=== PATIENT | female | born 1985 | race Caucasian/White ===

== ENCOUNTER 2018-03-07 11:11 | Emergency (ER) | payer OTHER ==
[2018-03-07 11:20] VITALS: BP 109/61
--- NOTE | 2018-03-07 12:11 | ED Physician Documentation ---
PD HPI HEENT - Stated complaint Stated Complaint: THROAT PX - Chief complaint Chief Complaint: General - History obtained from History obtained from: Patient - History of Present Illness Timing - onset: How many days ago (3-4) Timing - duration: Days Timing - details: Gradual onset, Still present Location: Throat. No: Right ear, Left ear, Sinuses Worsens: Swalllowing Associated symptoms: Congestion, Swollen nodes. No: Fever, Facial swelling Similar symptoms before: No: Has not had sx before Recently seen: Not recently seen Review of Systems Constitutional: reports: Myalgias. denies: Fever, Chills Nose: reports: Congestion. 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 - Past Surgical History Past Surgical History: Yes General: Appendectomy HEENT: Tonsil/Adenoidectomy - Present Medications Home Medications: Ambulatory Orders Medication Instructions Recorded Confirmed Ibuprofen [Motrin] 800 mg PO Q8H PRN #30 tablet 08/29/14 Citalopram [CeleXA] 20 mg PO DAILY 02/24/17 02/24/17 Dexamethasone [Decadron] 4 mg PO DAILY #5 tablet 03/07/18 Tramadol HCl 50 mg PO Q6H PRN #20 tablet 03/07/18 - Allergies Allergies/Adverse Reactions: Allergies Allergy/AdvReac Type Severity Reaction Status Date / Time pseudoephedrine HCl * Allergy Severe shock Verified 03/07/18 11:20 [From [facility]] pheudofed Allergy Unknown Uncoded 03/07/18 11:20 - Social History Does the pt smoke?: No Smoking Status: Never smoker Does the pt drink ETOH?: No Does the pt have substance abuse?: No - Immunizations Immunizations are current?: Yes - POLST Patient has POLST: No PD ED PE NORMAL - Vitals Vital signs reviewed: Yes - General General: Alert and oriented X 3, No acute distress, Well developed/nourished - HEENT HEENT: Ears normal, Pharynx benign - Neck Neck: Supple, no meningeal sign, Other (mild right anterior adenopathy) - Cardiac Cardiac: RRR, No murmur - Respiratory Respiratory: Clear bilaterally - Derm Derm: Normal color, Warm and dry, No rash Results - Vitals Vitals: Vital Signs - 24 hr 03/07/18 11:18 Temperature 37.2 C Heart Rate 61 Respiratory 16 Rate Blood Pressure 109/61 O2 Saturation 98 Oxygen O2 Source Room air - Labs Labs: Laboratory Tests 03/07/18 11:24 Group A Strep Rapid Negative Departure - Departure Disposition: Home, Self Care Clinical Impression: Acute viral pharyngitis Condition: Stable Record reviewed to determine appropriate education?: Yes Instructions: ED Pharyngitis Viral Follow-Up: CLEM RUBALCAVA [Primary Care Provider] - Prescriptions: Dexamethasone [Decadron] 4 mg PO DAILY #5 tablet Tramadol HCl 50 mg PO Q6H PRN #20 tablet PRN Reason: Pain Comments: It does not look bacterial on exam and your rapid strep test is negative. The culture will result in a couple of days and sometimes will reveal a different type of bacterial infection. Will call you if it is positive. Meanwhile we will presume it is a viral infection and treated with lots of fluids and Tylenol or ibuprofen. He may get some additional improvement with Decadron steroid anti-inflammatory and he can use tramadol pain medicine if needed for worse pain. Discharge Date/Time: 03/07/18 12:37
[2018-03-07] MEDS ORDERED: DEXAMETHASONE 10 MG/ML VIAL PO STA (12:19)
[2018-03-07] MEDS ORDERED: CHERRY SYRUP 10 ML UDC PO ONE (12:25)
== END 2018-03-07 12:37 | disposition home or self-care (01) ==
LOC: ED 11:11
DX: J02.9 Acute pharyngitis, unspecified (principal)
CPT/HCPCS: 87070; 87430; 99283; A9270

== ENCOUNTER 2019-02-05 12:17 | Emergency (ER) | payer OTHER ==
[2019-02-05 12:27] VITALS: BP 127/79
[2019-02-05] MEDS ORDERED: HYDROcod/ACETAM 5/325 MG TABLET PO STA (12:43)
[2019-02-05] MEDS ORDERED: GABAPENTIN 100 MG CAPSULE PO STA (12:43)
[2019-02-05] MEDS ORDERED: predniSONE 20 MG TABLET PO STA (12:43)
[2019-02-05] MEDS ORDERED: LIDOCAINE PATCH 5% TOP STA (12:43)
--- NOTE | 2019-02-05 12:44 | ED Physician Documentation ---
PD HPI SKIN - Stated complaint Stated Complaint: L SIDE RASH - Chief complaint Chief Complaint: Wound - History obtained from History obtained from: Patient - History of Present Illness Timing - onset: Other (5 days of a painful rash on the left flank, saw her doctor yesterday and was prescribed developed acyclovir for shingles, but she needs something more for pain.) Review of Systems Constitutional: reports: Reviewed and negative Throat: reports: Reviewed and negative Cardiac: reports: Reviewed and negative Respiratory: reports: Reviewed and negative PD PAST MEDICAL HISTORY - Past Medical History Cardiovascular: None Respiratory: None Neuro: None Endocrine/Autoimmune: None 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 - Past Surgical History Past Surgical History: Yes General: Appendectomy HEENT: Tonsil/Adenoidectomy - Present Medications Home Medications: Ambulatory Orders Medication Instructions Recorded Confirmed Ibuprofen [Motrin] 800 mg PO Q8H PRN #30 tablet 08/29/14 Citalopram [CeleXA] 20 mg PO DAILY 02/24/17 02/24/17 Tramadol HCl 50 mg PO Q6H PRN #20 tablet 03/07/18 dexAMETHasone [Decadron] 4 mg PO DAILY #5 tablet 03/07/18 Gabapentin [Neurontin] 300 mg PO TID #60 capsule 02/05/19 Hydrocodone/Acetaminophen 1 - 2 each PO Q6H PRN #14 tablet 02/05/19 [Hydrocodon-Acetaminophen 5-325] Lidocaine Patch 5% [Lidoderm Patch] 1 patch TOP DAILY PRN #10 patch 02/05/19 predniSONE [Deltasone] 20 mg PO [id number] #21 tab 02/05/19 - Allergies Allergies/Adverse Reactions: Allergies Allergy/AdvReac Type Severity Reaction Status Date / Time pseudoephedrine HCl * Allergy Severe shock Verified 02/05/19 12:27 [From Sudafed] pheudofed Allergy Unknown Uncoded 02/05/19 12:27 - Social History Does the pt smoke?: No Smoking Status: Never smoker Does the pt drink ETOH?: No Does the pt have substance abuse?: No - Immunizations Immunizations are current?: Yes - POLST Patient has POLST: No PD ED PE NORMAL - Vitals Vital signs reviewed: Yes - General General: Alert and oriented X 3, No acute distress - Derm Derm: Normal color, Warm and dry - Neuro Neuro: Alert and oriented X 3, Normal speech PD ED PE EXPANDED - Visual Whole body visual: 1 - rash (shingles) Results - Vitals Vitals: Vital Signs - 24 hr 02/05/19 12:23 Temperature 36.8 C Heart Rate 78 Respiratory 19 Rate Blood Pressure 127/79 O2 Saturation 95 Oxygen O2 Source Room air Departure - Departure Disposition: 01 Home, Self Care Clinical Impression: Shingles Qualifiers: Herpes zoster complications: without complications Qualified Code(s): B02.9 - Zoster without complications Condition: Good Record reviewed to determine appropriate education?: Yes Instructions: ED Shingles Prescriptions: Gabapentin [Neurontin] 300 mg PO TID #60 capsule Hydrocodone/Acetaminophen [Hydrocodon-Acetaminophen 5-325] 1 - 2 each PO Q6H PRN #14 tablet PRN Reason: pain Lidocaine Patch 5% [Lidoderm Patch] 1 patch TOP DAILY PRN #10 patch PRN Reason: pain predniSONE [Deltasone] 20 mg PO [id number] #21 tab Comments: Continue the antiviral medication your doctor gave you. Return for new or worsening symptoms.
== END 2019-02-05 12:56 | disposition home or self-care (01) ==
LOC: ED 12:17
DX: B02.9 Zoster without complications (principal)
CPT/HCPCS: 99283; A9270; J7512

== ENCOUNTER 2020-12-30 13:25 | Emergency (ER) | payer OTHER ==
--- NOTE | 2020-12-30 13:31 | ED Physician Documentation ---
PD HPI UPPER EXT INJURY - Stated complaint Stated Complaint: LT WRIST INJ - History obtained from History obtained from: Patient - History of Present Illness Location: Left, Wrist Type of injury: Other (repetitive heavy lifting while packing/moving household. No abrupt onset nor machanism, but pain over few days.). 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 Musculoskeletal: None - Past Surgical History Past Surgical History: Yes General: Appendectomy HEENT: Tonsil/Adenoidectomy - Present Medications Home Medications: Ambulatory Orders Medication Instructions Recorded Confirmed Ibuprofen [Motrin] 800 mg PO Q8H PRN #30 tablet 08/29/14 Citalopram [CeleXA] 20 mg PO DAILY 02/24/17 02/24/17 Tramadol HCl 50 mg PO Q6H PRN #20 tablet 03/07/18 dexAMETHasone [Decadron] 4 mg PO DAILY #5 tablet 03/07/18 Gabapentin [Neurontin] 300 mg PO TID #60 capsule 02/05/19 Hydrocodone/Acetaminophen 1 - 2 each PO Q6H PRN #14 tablet 02/05/19 [Hydrocodon-Acetaminophen 5-325] Lidocaine Patch 5% [Lidoderm Patch] 1 patch TOP DAILY PRN #10 patch 02/05/19 predniSONE [Deltasone] 20 mg PO [id number] #21 tab 02/05/19 HYDROcod/ACETAM 5/325 [[place] 5/325] 1 ea PO Q6H PRN #15 tablet 12/30/20 dexAMETHasone [Decadron] 4 mg PO DAILY #5 tablet 12/30/20 - Allergies Allergies/Adverse Reactions: Allergies Allergy/AdvReac Type Severity Reaction Status Date / Time pseudoephedrine HCl * Allergy Severe shock Verified 12/30/20 13:42 [From Sudafed] pheudofed Allergy Unknown Uncoded 12/30/20 13:42 - Social History Does the pt smoke?: No Smoking Status: Never smoker Does the pt drink ETOH?: No Does the pt have substance abuse?: No - Immunizations Immunizations are current?: Yes - POLST Patient has POLST: No PD ED PE NORMAL - Vitals Vital signs reviewed: Yes - General General: Alert and oriented X 3, No acute distress, Well developed/nourished - Derm Derm: Normal color, Warm and dry - Extremities Extremities: Other (left wrist dorsal ulnar side with local tenderness along tendon/muscle. No redness. Hyperextension of the wrist does cause mild crepitant feeling in the area c/w tendonitis. No bony tenderness per se. ) - Neuro Neuro: Alert and oriented X 3, No motor deficit, No sensory deficit, Normal speech Results - Vitals Vitals: Vital Signs - 24 hr 12/30/20 13:37 Temperature 36.6 C Heart Rate 84 Respiratory 18 Rate Blood Pressure 121/66 O2 Saturation 100 Oxygen O2 Source Room air PD MEDICAL DECISION MAKING - ED course Complexity details: considered differential (graudal onset pain with movement from repetitive use. No abrupt impact/injury. Exam c/w tendonitis. Will use wrist splint and NSAIDs, pain meds short term. ), d/w patient Departure - Departure Disposition: 01 Home, Self Care Clinical Impression: Left wrist tendonitis Condition: Stable Record reviewed to determine appropriate education?: Yes Instructions: ED Sprain Wrist Prescriptions: dexAMETHasone [Decadron] 4 mg PO DAILY #5 tablet HYDROcod/ACETAM 5/325 [[place] 5/325] 1 ea PO Q6H PRN #15 tablet PRN Reason: Pain Comments: Use the Wrist splint to protect motion and help support the wrist while using it. Try to minimize using of it to reduce the inflammation in irritation of the tendons. Continue with anti-inflammatories of ibuprofen 2-3 times a day. You could also add Decadron steroid anti-inflammatory daily for a few days. Make sure to have both with food so they do not further irritate your stomach. To that add Tylenol every 4-6 hours if needed for pain or hydrocodone if needed for worse pain. I would anticipate improvement in this over several days to a week once you are able to stop further irritating it. Good luck with your packing and moving. I am prescribing a short course of narcotic pain medication for you. These are potentially dangerous and addictive medications that should be used carefully. These medications may constipate you. Take an [id number] stool softener such as docusate twice daily with plenty of water while taking these medications. If you go 24 hours without a bowel movement, take [id number] [id number], per package instructions. Do not drink or drive while taking these medications. If you received narcotic or sedating medications while in the emergency department do not drive for 24 hours. Store this medication in a safe, secure place and out of reach of children. It is a violation of federal law to give or sell this medication to another person or to use in a manner other than prescribed. The ED will not refill narcotic prescriptions, including prescriptions lost or stolen. You can dispose of unwanted medications at the [facility]'s office or at several pharmacies such as [facility]. Discharge Date/Time: 12/30/20 14:20
[2020-12-30 13:42] VITALS: BP 121/66
[2020-12-30] MEDS ORDERED: HYDROcod/ACETAM 5/325 MG TABLET PO STA (13:55)
[2020-12-30] MEDS ORDERED: DEXAMETHASONE 10 MG/ML VIAL PO STA (13:55)
[2020-12-30] MEDS ORDERED: CHERRY SYRUP 10 ML UDC PO ONE (13:55)
== END 2020-12-30 14:20 | disposition home or self-care (01) ==
LOC: ED 13:25
DX: M70.832 Other soft tissue disorders related to use, overuse and pressure, left forearm (principal); X50.0XXA Overexertion from strenuous movement or load, initial encounter; Y93.E6 Activity, residential relocation
CPT/HCPCS: 99282; 99283; A9270